=== PATIENT | female | born 1990 | race Two or more races ===

== ENCOUNTER 2022-09-18 03:45 | Emergency (ER) | payer OTHER ==
[~2022-09-18] VITALS: Ht 170.2 cm; Wt 113.4 kg
[2022-09-18] MEDS ORDERED: TAMS0.4C PO (12:50)
== END 2022-09-18 13:10 | disposition home or self-care (01) ==
LOC: ER 03:45
DX: N39.0 Urinary tract infection, site not specified (principal); R31.9 Hematuria, unspecified; N20.0 Calculus of kidney